=== PATIENT | female | born 1995 | race African-American/Black ===

== ENCOUNTER 2017-09-22 16:16 | Emergency (ER) | payer SELFPAY ==
[2017-09-22 17:03] VITALS: BP 104/68
--- NOTE | 2017-09-22 17:35 | ER Document Report ---
ED General - General Chief Complaint: Skin Problem Stated Complaint: HEADACHE,EAR PAIN Time Seen by Provider: 09/22/17 17:18 Mode of Arrival: Ambulatory Information source: Patient Notes: Patient is a 22-year-old black female comes emergency room complaining of a headache induced by a large keloid on the left ear. Patient states she has had this keloid approximately 4-5 years got it when she attempted to put a ring on the top of her ear. Is continued to get larger and occasionally she has flareups of pain and discomfort especially when he gets cold outside or when it is bumped. States the headaches are more of a throbbing kind of irritation. And these headaches she has are always similar in their presentation in consistency. She is rating the ear pain/headache about a 5 out of 10 right now. She has some nausea but she does not have any photophobia no vomiting and no visual problems. TRAVEL OUTSIDE OF THE [place] IN LAST 30 DAYS: No - HPI Patient complains to provider of: Left ear keloid/associated headache Onset: Other - Patient states that since he started to get cold outside last few days she has had some discomfort with the large keloid on the left auricle but her daughter bumped it this morning getting dressed and it is not major amount of discomfort and pain to her head. Quality of pain: Cramping, Throbbing Severity: Moderate Pain Level: 3 Context: Keloid induced headache Associated symptoms: Earache, Headache Exacerbated by: Other - Cold environment/trauma Relieved by: Other - Nothing at this time. Similar symptoms previously: Yes Recently seen / treated by doctor: No Notes: Patient states that she is just moved back here from [place]. Last time she had a problem with a headache and the keloid was in December of this past year. She did go to a clinic where they did a attempt to have surgical intervention however it was declined by her insurance because it was cosmetic according to them. Is then patient's headaches have increasingly gotten worse and the keloid is gotten larger. - Related Data Allergies/Adverse Reactions: kiwi [Kiwi (Actinidia Chinensis)] Allergy (Verified 02/13/15 23:03) latex [Latex] Allergy (Verified 02/13/15 23:03) Past Medical History - General Information source: Patient - Social History Smoking Status: Never Smoker Cigarette use (# per day): No Chew tobacco use (# tins/day): No Smoking Education Provided: No Frequency of alcohol use: None Drug Abuse: None Family History: Reviewed & Not Pertinent Patient has suicidal ideation: No Patient has homicidal ideation: No - Immunizations Immunizations up to date: Yes Hx Diphtheria, Pertussis, Tetanus Vaccination: No Review of Systems - Review of Systems Constitutional: No symptoms reported EENT: Ear pain Cardiovascular: No symptoms reported Respiratory: No symptoms reported Gastrointestinal: No symptoms reported Genitourinary: No symptoms reported Female Genitourinary: No symptoms reported Musculoskeletal: No symptoms reported Skin: No symptoms reported Hematologic/Lymphatic: No symptoms reported Neurological/Psychological: No symptoms reported -: Yes All other systems reviewed and negative Physical Exam - Vital signs Vitals: Temp Pulse Resp BP Pulse Ox 98.7 F 82 16 104/68 98 09/22/17 17:01 09/22/17 17:01 09/22/17 17:01 09/22/17 17:01 09/22/17 17:01 Interpretation: Normal - General General appearance: Alert, Other - Uncomfortable appearing In distress: None - HEENT Head: Normocephalic Eyes: Normal Ears: Other - Examination patient's left ear shows her to be on the top part of the auricle a 4 cm x 2 cm keloid that was developed since having a earring placed 5 years ago. It is firm tender and some minor swelling at the shaft portion. External canal: Normal Tympanic membrane: Normal Nasal: Normal Pharynx: Normal Neck: Normal - Respiratory Respiratory status: No respiratory distress Chest status: Nontender Breath sounds: Normal. No: Decreased air movement, Nonproductive cough, Productive cough, Rales, Rhonchi, Stridor, Wheezing, Other - Cardiovascular Rhythm: Regular Heart sounds: Normal auscultation Murmur: No - Neurological Neuro grossly intact: Yes Cognition: Normal Orientation: AAOx4 [place] Coma Scale Eye Opening: Spontaneous [place] Coma Scale Verbal: Oriented [place] Coma Scale Motor: Obeys Commands [place] Coma Scale Total: 15 Speech: Normal - Skin Skin Temperature: Warm Skin Moisture: Dry Skin Color: Normal, [place], Other - See above description under ear Course - Vital Signs Vital signs: Temp Pulse Resp BP Pulse Ox 98.7 F 82 16 104/68 98 09/22/17 17:01 09/22/17 17:01 09/22/17 17:01 09/22/17 17:01 09/22/17 17:01 - Transfer of Care Notes: 09/22/17 17:37 At this time I do not believe any type of a diagnostic is necessary to order for patient. Headaches are all the same type and intensity when her keloid gets aggravated especially with cold weather or acute trauma bumping it against something. Her daughter bumped this morning while was cold and patient has had increasing headaches since then. The headaches are not related to any visual disturbances there is no photophobia there is just some throbbing on the alevism side of the head which have not gone away with medication i.e. ibuprofen and Tylenol. I have given the patient the name of the [facility] informed her that this is something we will probably need a surgical intervention. I also informed her that this is something that when removed can also result in a worse keloid but eventually for comfort is going to have to be removed. So we will treat her with some anti-inflammatory and a little pain medication to get her through her breakouts. Discharge - Discharge Clinical Impression: Keloid scar of skin, Headache Condition: Good Disposition: HOME, SELF-CARE Additional Instructions: Headache The physician does not feel that the headache you are experiencing has a serious underlying cause. Most headaches are due to emotional stress, with resultant muscle tension (tension headache). Occasionally, headaches are secondary to changes in the blood vessels of the scalp (vascular headache and migraine headache). Sometimes, a headache is the first symptom of another developing illness, such as a viral infection. You have no evidence of stroke, bleeding, meningitis, or other serious cause of your headache. The treatment of headaches varies with the severity and cause of the pain. Not all headaches need pain shots. In fact, there is evidence that using narcotics for headaches may make them worse in the long run. The physician will determine the therapy that's in your best interest. If you develop a fever, if the headache is different from any you've previously experienced, or if the headache progressively worsens, then call your physician at once or go to the emergency room. As you know a keloid is a body malfunction that has an overgrowth of tissue and skin that grows out of proportion after trauma to an area in the body. This occurs mostly with darkened skin people and can be very disfiguring. The keloid you have on the left side of her head is 4 cm x 2 cm by about 3 cm high this is a fairly large keloid. At this point I think surgical intervention would be the thought however keloids are notorious for getting worse after surgery. This is something though that I think needs to be discussed with a surgeon and have the options weight. Since your headaches have been getting more severe and more constant with the aggravation of this keloid this may be a reason for surgical intervention. Prescriptions: Hydrocodone/Acetaminophen [[place] 5-325 Tablet] 1 each PO ASDIR PRN #12 tablet PRN Reason: Ibuprofen 800 mg PO TID #30 tablet
== END 2017-09-22 17:57 | disposition home or self-care (01) ==
LOC: ER 16:16
DX: R51 Headache (principal); L91.0 Hypertrophic scar; L90.5 Scar conditions and fibrosis of skin; Z90.710 Acquired absence of both cervix and uterus
CPT/HCPCS: 99283

== ENCOUNTER 2018-04-01 06:27 | Emergency (ER) | payer MEDICAID ==
[2018-04-01 06:36] VITALS: BP 125/86
[2018-04-01] MEDS ORDERED: ACETAMINOPHEN 325 MG TABLET PO ONE (08:14)
[2018-04-01] MEDS ORDERED: AZITHROMYCIN 250 MG TABLET PO ONE (08:27)
[2018-04-01] MEDS ORDERED: CEFTRIAXONE INJ 250 MG VIAL IM ONE (08:27)
[2018-04-01] MEDS ORDERED: LIDOCAINE 1% INJ-PF (10 MG/ML) 30 ML SDV INJ ONE (08:27)
[2018-04-01] MEDS ORDERED: LEVONORGESTREL 1.5 MG TABLET (1 TAB/ER-USE) PO ONE (11:56)
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
== END 2018-04-01 14:07 | disposition home or self-care (01) ==
LOC: ER 06:27
DX: T74.21XA Adult sexual abuse, confirmed, initial encounter (principal); Y07.59 Other non-family member, perpetrator of maltreatment and neglect; Z97.5 Presence of (intrauterine) contraceptive device; Z91.018 Allergy to other foods; Z91.040 Latex allergy status
CPT/HCPCS: 99284; 96372; J3490 ×2; Q0144; A9270; J0696

== ENCOUNTER 2019-08-19 09:58 | Emergency (ER) | payer OTHER ==
[2019-08-19 10:04] VITALS: BP 112/66
[2019-08-19] MEDS ORDERED: IBUPROFEN 800 MG TABLET PO ONE (10:55)
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
== END 2019-08-19 11:00 | disposition home or self-care (01) ==
LOC: ER 09:58
DX: S16.1XXA Strain of muscle, fascia and tendon at neck level, initial encounter (principal); M79.18 Myalgia, other site; V49.40XA Driver injured in collision with unspecified motor vehicles in traffic accident, initial encounter; Z97.5 Presence of (intrauterine) contraceptive device; Z91.018 Allergy to other foods; Z91.040 Latex allergy status
CPT/HCPCS: 99283

== ENCOUNTER 2019-09-10 17:57 | Emergency (ER) | payer BC, OTHER ==
[2019-09-10 18:26] VITALS: BP 109/63
--- NOTE | 2019-09-10 19:26 | ER Document Report ---
ED GI/ - General Chief Complaint: Urinary Problem Stated Complaint: URINARY ISSUES Time Seen by Provider: 09/10/19 19:21 Primary Care Provider: CARLA DE LA TORRE PA-C [Primary Care Provider] - Follow up as needed Mode of Arrival: Ambulatory Information source: Patient Notes: 23-year-old female presented to ED for complaint of 3 days of urinary frequency urgency and burning. She states she has no other symptoms. She has an IUD in place. She states she rarely drinks does not smoke or use any drugs. She denies any past medical or surgical history. TRAVEL OUTSIDE OF THE [place] IN LAST 30 DAYS: No - HPI Patient complains to provider of: Other - Urinary for the urgency and burning [place] Onset: Other - 3 Timing/Duration: Intermittent Quality of pain: Burning Pain Level: 3 LMP: IUD Associated symptoms: Urinary frequency, Urinary urgency, Other - Sequencing. denies: Vaginal discharge Exacerbated by: Other Relieved by: Denies - Urination Similar symptoms previously: Yes Recently seen / treated by doctor: No - Related Data Allergies/Adverse Reactions: kiwi [Kiwi (Actinidia Chinensis)] Allergy (Verified 09/10/19 19:21) latex [Latex] Allergy (Verified 09/10/19 19:21) Past Medical History - General Information source: Patient - Social History Smoking Status: Never Smoker Frequency of alcohol use: Rare Drug Abuse: None Occupation: [employer] Lives with: Family Family History: Reviewed & Not Pertinent Patient has suicidal ideation: No Patient has homicidal ideation: No - Past Medical History Cardiac Medical History: Reports: None Pulmonary Medical History: Reports: None EENT Medical History: Reports: None Neurological Medical History: Reports: None Endocrine Medical History: Reports: None Renal/ Medical History: Reports: None Malignancy Medical History: Reports: None GI Medical History: Reports: None Musculoskeletal Medical History: Reports None Skin Medical History: Reports None Psychiatric Medical History: Reports: None Traumatic Medical History: Reports: None Infectious Medical History: Reports: None Surgical Hx: Negative Past Surgical History: Reports: None - Immunizations Immunizations up to date: Yes Hx Diphtheria, Pertussis, Tetanus Vaccination: No Review of Systems - Review of Systems Constitutional: No symptoms reported EENT: No symptoms reported Cardiovascular: No symptoms reported Respiratory: No symptoms reported Gastrointestinal: No symptoms reported Genitourinary: No symptoms reported, Burning, Frequency, Urgency Female Genitourinary: No symptoms reported Musculoskeletal: No symptoms reported Skin: No symptoms reported Hematologic/Lymphatic: No symptoms reported Neurological/Psychological: No symptoms reported -: Yes All other systems reviewed and negative Physical Exam - Vital signs Vitals: Temp Pulse Resp BP Pulse Ox 98.2 F 84 20 109/63 100 09/10/19 18:25 09/10/19 18:25 09/10/19 18:25 09/10/19 18:25 09/10/19 18:25 Interpretation: Normal - General General appearance: Appears well, Alert - HEENT Head: Normocephalic, Atraumatic Eyes: Normal Pupils: PERRL - Respiratory Respiratory status: No respiratory distress Chest status: Nontender Breath sounds: Normal Chest palpation: Normal - Cardiovascular Rhythm: Regular Heart sounds: Normal auscultation Murmur: No - Abdominal Inspection: Normal Distension: No distension Bowel sounds: Normal Tenderness: Nontender Organomegaly: No organomegaly - Back Back: Normal, Nontender - Extremities General upper extremity: Normal inspection, Nontender, Normal color, Normal ROM, Normal temperature General lower extremity: Normal inspection, Nontender, Normal color, Normal ROM, Normal temperature, Normal weight bearing. No: Heidi's sign - Neurological Neuro grossly intact: Yes Cognition: Normal Orientation: AAOx4 [place] Coma Scale Eye Opening: Spontaneous [place] Coma Scale Verbal: Oriented [place] Coma Scale Motor: Obeys Commands [place] Coma Scale Total: 15 Speech: Normal Motor strength normal: LUE, RUE, LLE, RLE Sensory: Normal - Psychological Associated symptoms: Normal affect, Normal mood - Skin Skin Temperature: Warm Skin Moisture: Dry Skin Color: Normal Course - Vital Signs Vital signs: Temp Pulse Resp BP Pulse Ox 98.2 F 84 20 109/63 100 09/10/19 18:25 09/10/19 18:25 09/10/19 18:25 09/10/19 18:25 09/10/19 18:25 - Laboratory Laboratory results interpreted by me: 09/10/19 19:30 Urine Blood MODERATE H Urine Nitrite (Reflex) POSITIVE H Leukocyte Esterase Rfl MODERATE H Discharge - Discharge Clinical Impression: UTI (urinary tract infection) Qualifiers: Urinary tract infection type: acute cystitis Hematuria presence: with hematuria Qualified Code(s): N30.01 - Acute cystitis with hematuria Condition: Stable Disposition: HOME, SELF-CARE Additional Instructions: URINARY TRACT INFECTION: Your evaluation indicates that you have a urinary tract infection. This is due to germs growing in the bladder. This is a common problem. This infection usually responds quickly to antibiotics. Your antibiotic should be taken exactly as prescribed. Drink plenty of fluids -- three to four quarts a day. Occasionally, a bladder anesthetic will be prescribed to help stop the feeling of urgency until the antibiotic has a chance to clear the infection. This may cause your urine to be dark orange. Certain urine infections require a culture. If the doctor obtained a culture, the results will be back in two days. You should call to see if a change in treatment is needed. A repeat urinalysis after you finish treatment is often recommended. The physician will let you know if further testing is required. Call the doctor if you develop fever, chills, flank pain, inability to urinate, or blood in the urine. ANTIBIOTIC THERAPY: You have been given an antibiotic prescription. It's important that you take all the medication, unless instructed otherwise by your physician. Failure to complete the entire course can result in relapse of your condition. Common side effects of antibiotics include nausea, intestinal cramping, or diarrhea. Women may develop vaginal yeast infections, and babies can get yeast (thrush) in the mouth following the use of antibiotics. Contact your physician if you develop significant side effects from this medication. Allergy to this antibiotic can result in hives, wheezing, faintness, or itching. If symptoms of allergy occur, stop the medication and call the doctor. CEPHALEXIN: The antibiotic you've been prescribed is a member of the cephalosporin class. This type of antibiotic covers a wide variety of infections, including those of the skin, lungs, and urinary tract. It's useful for staph infections. This antibiotic is slightly similar to the penicillin family. In rare cases, a person who is allergic to penicillin will also be allergic to this medication. If you have had a severe allergic reaction to penicillin, and have not taken this antibiotic since that time, notify your doctor. Antibiotics which cover many germs ("broad spectrum" antibiotics) are more likely to cause diarrhea or "yeast" infections. Women prone to vaginal yeast problems may suffer an attack after taking this antibiotic. In infants, oral thrush (white spots "stuck" on the cheek) or yeast diaper rash may result. See your doctor if these problems occur. Call at once if you develop itching, hives, shortness of breath, or lightheadedness. FOLLOW-UP CARE: If you have been referred to a physician for follow-up care, call the physicians office for an appointment as you were instructed or within the next two days. If you experience worsening or a significant change in your symptoms, notify the physician immediately or return to the Emergency Department at any time for re-evaluation. Prescriptions: Cephalexin Monohydrate [Keflex 500 mg Capsule] 500 mg PO Q6H 5 Days capsule Referrals: CARLA DE LA TORRE PA-C [Primary Care Provider] - Follow up as needed
[2019-09-10 19:52] LABS: APPEARANCE,URINE SLIGHTLY-CLOUDY; BILIRUBIN,URINE NEGATIVE (NEGATIVE); COLOR,URINE YELLOW; GLUCOSE, URINE NEGATIVE (NEGATIVE); KETONES,URINE NEGATIVE (NEGATIVE); PROTEIN,URINE NEGATIVE (NEGATIVE); URINE SPECIFIC GRAVITY 1.025; UROBILINOGEN,URINE NEGATIVE mg/dL (<2.0)
[2019-09-10] MEDS ORDERED: CEPHALEXIN 500 MG CAPSULE PO ONE (20:07)
== END 2019-09-10 20:20 | disposition home or self-care (01) ==
LOC: ER 17:57
DX: N30.01 Acute cystitis with hematuria (principal); Z97.5 Presence of (intrauterine) contraceptive device; Z91.018 Allergy to other foods; Z91.040 Latex allergy status
CPT/HCPCS: 81001; 99283